=== PATIENT | male | born 1990 | race Caucasian/White ===

== ENCOUNTER 2021-03-02 22:00 | Emergency (ER) | payer OTHER ==
[2021-03-02 22:04] VITALS: BP 139/87; PULSE 93; TEMP 98.1; BMI 22.8
[2021-03-02] MEDS ORDERED: KETOROLAC TROMETHAMINE 30 MG/1 ML VIAL IM ONE (22:49)
[2021-03-02] MEDS ORDERED: KETOROLAC TROMETHAMINE 30 MG/1 ML VIAL ONE (22:56)
== END 2021-03-03 00:10 | disposition home or self-care (01) ==
LOC: JERFT 22:00
PROC: 3E0233Z Introduction of Anti-inflammatory into Muscle, Percutaneous Approach (ICD-10-PCS; principal; 2021-03-02)
DX: S92.534A Nondisplaced fracture of distal phalanx of right lesser toe(s), initial encounter for closed fracture (principal); S60.221A Contusion of right hand, initial encounter; W19.XXXA Unspecified fall, initial encounter; Y92.9 Unspecified place or not applicable
CPT/HCPCS: 73110-TC-RT-FY; 73130-TC-RT-FY; 73610-TC-RT-FY; 73630-TC-RT-FY; 99284-25